=== PATIENT | female | born 1995 | race Caucasian/White ===

== ENCOUNTER 2016-06-30 11:35 | Emergency (ER) | payer OTHER ==
[2016-06-30] MEDS ORDERED: PROMETHAZINE HCL 25 MG SUPP.RECT PR ONE (12:09)
--- NOTE | 2016-06-30 12:09 | ER Document Report ---
ED Medical Screen (RME) - General Stated Complaint: VOMITING Notes: Patient reports vomiting for 24 hours. States she had a fever yesterday, and is unable to keep anything down. Denies diarrhea. Patient is 14 weeks . Patient denies lower abdominal pain or vaginal bleeding. Denies dysuria. Patient denies sick contacts. I have greeted and performed a rapid initial assessment of this patient. A comprehensive ED assessment and evaluation of the patient, analysis of test results and completion of the medical decision making process will be conducted by additional ED providers. - Related Data Allergies/Adverse Reactions: No Known Allergies Allergy (Verified 06/30/16 12:06) Physical Exam - Abdominal Bowel sounds: Normal Tenderness: Tender - diffuse tenderness
[2016-06-30 12:44] LABS: ABSOLUTE LYMPHOCYTES (AUTO) 1.3 10^3/uL (0.5-4.7); ABSOLUTE MONOCYTES (AUTO) 0.5 10^3/uL (0.1-1.4); ABSOLUTE NEUT (AUTO) 9.7 10^3/uL (1.7-8.2); BASOPHILS % (AUTO) 0.2 % (0-2); EOSINOPHILS % (AUTO) 0.1 % (0-6); HEMATOCRIT 36.7 % (36.0-47.0); HEMOGLOBIN 12.9 g/dL (12.0-15.5); MEAN CORPUSCULAR HEMOGLOBIN 28.6 pg (27.0-33.4); MEAN CORPUSCULAR VOLUME 82 fl (80-97); MONOCYTES % (AUTO) 4.2 % (3-13); RED CELL DISTRIBUTION WIDTH 13.8 % (11.5-14.0); SEGMENTED NEUTROPHILS % (AUTO) 84.5 % (42-78); WHITE BLOOD COUNT 11.5 10^3/uL (4.0-10.5)
[2016-06-30 12:54] LABS: AMORPHOUS SEDIMENT,URINE TRACE /HPF; APPEARANCE,URINE TURBID; BILIRUBIN,URINE NEGATIVE (NEGATIVE); GLUCOSE, URINE NEGATIVE (NEGATIVE); KETONES,URINE 80 mg/dL (NEGATIVE); LEUKOCYTE ESTERASE,URINE NEGATIVE (NEGATIVE); NITRITE,URINE NEGATIVE (NEGATIVE); PROTEIN,URINE 100 mg/dL (NEGATIVE); URINE SPECIFIC GRAVITY 1.018; UROBILINOGEN,URINE NEGATIVE mg/dL (<2.0)
[2016-06-30 12:57] LABS: ALANINE AMINOTRANSFERASE 23 U/L (9-52); ALBUMIN 4.7 g/dL (3.5-5.0); ALKALINE PHOSPHATASE 60 U/L (38-126); ANION GAP 19 (5-19); ASPARTATE AMINO TRANSFERASE 24 U/L (14-36); BILIRUBIN,DIRECT 0.2 mg/dL (0.0-0.4); BILIRUBIN,TOTAL 0.7 mg/dL (0.2-1.3); BLOOD UREA NITROGEN 7 mg/dL (7-20); CALCIUM 10.3 mg/dL (8.4-10.2); CARBON DIOXIDE 20 mmol/L (22-30); CHLORIDE 102 mmol/L (98-107); GLUCOSE 99 mg/dL (75-110); LIPASE 74.8 U/L (23-300); POTASSIUM 3.5 mmol/L (3.6-5.0); SODIUM 140.5 mmol/L (137-145); TOTAL PROTEIN 8.2 g/dL (6.3-8.2)
--- NOTE | 2016-06-30 18:37 | ER Document Report ---
ED GI/ - General Mode of Arrival: Ambulatory Information source: Patient, Relative TRAVEL OUTSIDE OF THE [place] IN LAST 30 DAYS: No - HPI Patient complains to provider of: Vomiting Onset: Yesterday Timing/Duration: Persistent Context: Location: Epigastric - Mild epigastric pain secondary to vomiting Vaginal bleeding (Compared to normal period): None : 1 Para: 0 Abortions: 0 Associated symptoms: Loss of appetite, Nausea, Vomiting <PILLO MANDUJANO - Last Filed: 06/30/16 19:25> <DORETHA CRUMP - Last Filed: 06/30/16 19:52> - General Chief Complaint: Vomiting Stated Complaint: VOMITING Notes: Patient is a 21-year-old female presenting to the emergency department chief complaint persistent vomiting onset yesterday. Patient states that more recently she has been dry heaving with a small amount of blood present. Patient states that she is 14 weeks , and she and her recently moved here and states that she has been seen at [facility]. Patient states she has been nauseous every day, and sometimes Zofran helps. Patient also notes some mild abdominal pain secondary to vomiting. (PILLO MANDUJANO) - Related Data Allergies/Adverse Reactions: No Known Allergies Allergy (Verified 06/30/16 12:06) Past Medical History - General Information source: Patient - Social History Smoking Status: Unknown if Ever Smoked Chew tobacco use (# tins/day): No Frequency of alcohol use: None Drug Abuse: None Lives with: Spouse/Significant other Family History: Reviewed & Not Pertinent Patient has suicidal ideation: No Patient has homicidal ideation: No Renal/ Medical History: Denies: Hx Peritoneal Dialysis <PILLO MANDUJANO - Last Filed: 06/30/16 19:25> Review of Systems - Review of Systems Constitutional: No symptoms reported EENT: No symptoms reported Cardiovascular: No symptoms reported Respiratory: No symptoms reported Gastrointestinal: See HPI, Nausea, Vomiting Genitourinary: No symptoms reported Female Genitourinary: No symptoms reported Musculoskeletal: No symptoms reported Skin: No symptoms reported Hematologic/Lymphatic: No symptoms reported Neurological/Psychological: No symptoms reported -: Yes All other systems reviewed and negative <PILLO MANDUJANO - Last Filed: 06/30/16 19:25> Physical Exam - Vital signs Interpretation: Normal - General General appearance: Alert - HEENT Head: Normocephalic, Atraumatic Eyes: Normal Pupils: PERRL Mucous membranes: Dry - Respiratory Respiratory status: No respiratory distress Chest status: Nontender Breath sounds: Normal Chest palpation: Normal - Cardiovascular Rhythm: Regular Heart sounds: Normal auscultation Murmur: No - Abdominal Inspection: Gravid female Distension: No distension Bowel sounds: Normal Tenderness: Tender - Mild epigastric tenderness to palpation secondary to vomiting. Organomegaly: No organomegaly - Back Back: Normal, Nontender - Extremities General upper extremity: Normal inspection, Nontender General lower extremity: Normal inspection, Nontender - Neurological Neuro grossly intact: Yes Cognition: Normal Orientation: AAOx4 Outlook Coma Scale Eye Opening: Spontaneous Outlook Coma Scale Verbal: Oriented Outlook Coma Scale Motor: Obeys Commands Outlook Coma Scale Total: 15 Speech: Normal - Psychological Associated symptoms: Normal affect, Normal mood - Skin Skin Temperature: Warm Skin Moisture: Dry Skin Color: Pale <PILLO MANDUJANO - Last Filed: 06/30/16 19:25> Course - Laboratory Result Diagrams: 06/30/16 12:15 06/30/16 12:15 <PILLO MANDUJANO - Last Filed: 06/30/16 19:25> - Laboratory Result Diagrams: 06/30/16 12:15 06/30/16 12:15 <DORETHA CRUMP - Last Filed: 06/30/16 19:52> - Re-evaluation Re-evalutation: 06/30/16 18:54 I personally performed the services described in the documentation, reviewed and edited the documentation which was dictated to my scribe in my presence, and it accurately records my words and actions. Patient arrived to the back of the emergency department and picked her up to see her from the [facility] at 1845. Immediately assessed at the bedside she is new to the area has [facility] her first at 14 weeks. She's had intermittent nausea vomiting throughout the for which she is on Zofran and diclegic. She states the past 2 days she's had nausea vomiting unable to keep anything down and feels like she is dehydrated. She denies any fevers chills chest pain cough shortness of breath abdominal pain flank pain urinary symptoms bleeding or discharge. 06/30/16 19:39 Patient given IV fluids and nausea medication no acute lab abnormality little bit a low chloride. Discussed with patient vomiting during importance of oral hydration and she is going to closely follow up with her OB/ [facility] physician. No emergent need to admit her to the hospital this time. Discussed reasons For ed return sooner 06/30/16 19:50 (DORETHA CRUMP) - Vital Signs Vital signs: Temp Pulse Resp BP Pulse Ox 97.6 F 87 18 121/79 100 06/30/16 18:48 06/30/16 18:48 06/30/16 18:48 06/30/16 18:48 06/30/16 18:48 - Laboratory Laboratory results interpreted by me: 06/30/16 06/30/16 06/30/16 12:15 12:15 12:15 WBC 11.5 H Seg Neutrophils % 84.5 H Lymphocytes % 11.0 L Absolute Neutrophils 9.7 H Potassium 3.5 L Carbon Dioxide 20 L Creatinine 0.50 L Calcium 10.3 H Beta HCG, Quant 113226.00 H Urine Protein 100 H Urine Ketones 80 H Discharge <PILLO MANDUJANO - Last Filed: 06/30/16 19:25> <DORETHA CRUMP - Last Filed: 06/30/16 19:52> - Discharge Clinical Impression: Vomiting during Condition: Stable Disposition: HOME, SELF-CARE Additional Instructions: Vomiting with Vomiting can be part of many illnesses. Most cases of vomiting are due to gastroenteritis, usually a viral infection in the intestinal tract. There is no specific treatment. The disease will end by itself. For now, the main danger to your child is dehydration. During the first few hours of the illness, give clear liquids, such as Pedialyte. Try to give small quantities frequently, such as a teaspoon of liquid every minute or about an ounce of fluids every five to ten minutes. Medications may be prescribed by the physician for special cases. After an hour or two of fluids without vomiting, add rice cereal, toast, applesauce, or bananas and other more solid foods to the clear liquids. Call the physician or go to the hospital if vomiting increases or blood appears in the bowel movement or vomitus; if your child fails to improve, or if signs of dehydration occur (no wet diapers for eight to twelve hours, tongue and mouth become dry, not acting as alert as usual). Referrals: NANCY ARREDONDO MD [Primary Care Provider] - Follow up as needed (In 2-3 days return for increasing worsening or new symptoms) Scribe Documentation - Scribe Written by Linn:: Pillo Mandujano 06/30/2016 1836 acting as scribe for :: Dr. Crump <PILLO MANDUJANO - Last Filed: 06/30/16 19:25>
[2016-06-30] MEDS ORDERED: RINGERS SOLUTION,LACTATED 2,000 ML IV ONE (18:51)
[2016-06-30] MEDS ORDERED: METOCLOPRAMIDE HCL INJ/PF 10 MG/2 ML SDV IV ONE (18:54)
[2016-06-30 21:06] VITALS: BP 118/67
== END 2016-06-30 21:05 | disposition home or self-care (01) ==
LOC: ER 11:35
DX: R11.10 Vomiting, unspecified (principal); Z3A.14 14 weeks gestation of pregnancy
CPT/HCPCS: 99284; 96374; 36415; 84702; 83690; 85025; 80053; 81001; J2765; J3490; J7120